=== PATIENT | male | born 1995 | race Hispanic/Latino ===

== ENCOUNTER 2017-10-06 07:07 | Emergency (ER) | payer MEDICAID, OTHER ==
[2017-10-06 07:34] VITALS: BP 131/79; PULSE 69; RESP 14; TEMP 99.3; O2SAT 100
--- NOTE | 2017-10-06 07:41 | C.PDOC ---
History Of Present Illness 22 y/o M c no PMHx p/w sore throat x 2 days. Patient reports subjective fever, worse when swallowing, painful to talk. Denies drooling, dyspnea, or cough. States girlfriend had sore throat a week ago and is taking antibiotics. Time Seen by Provider: 10/06/17 07:26 Chief Complaint (Nursing): ENT Problem Past Medical History Vital Signs: Last Vital Signs Temp 99.3 F 10/06/17 07:31 Pulse 69 10/06/17 07:31 Resp 14 10/06/17 07:31 BP 131/79 10/06/17 07:31 Pulse Ox 100 10/06/17 07:31 Family History: States: Unknown Family Hx - Social History Hx Tobacco Use: No Hx Alcohol Use: No Hx Substance Use: No - Immunization History Hx Influenza Vaccination: No Hx Pneumococcal Vaccination: No Review Of Systems Except As Marked, All Systems Reviewed And Found Negative. Respiratory: Negative for: Shortness of Breath Gastrointestinal: Negative for: Vomiting Physical Exam - Physical Exam Additional Physical Exam Comments: Gen: NAD Head: NC/AT Eyes: PERRL ENT: Erythema and exudates. Uvula midline. Neck: Tender lymphadenopathy CV: Regular rate Lungs: CTA b/l Abd: Soft Skin: No rash Extremities: No edema Neuro: Alert, no focal deficit ED Course And Treatment O2 Sat by Pulse Oximetry: 100 Medical Decision Making Medical Decision Making: Treated with Toradol and amoxicillin. Discharged home, f/u clinic, return to ED for worsening pain, drooling, swelling, or any other problem. Disposition - Disposition Referrals: [facility] [Outside] Disposition: HOME/ ROUTINE Disposition Time: 07:41 Condition: STABLE Prescriptions: Amoxicillin 875 mg PO BID #19 tablet Instructions: Strep Throat (DC) Forms: [facility] (Burmese), Work Excuse - Clinical Impression Clinical Impression: Tonsillitis
== END 2017-10-06 08:00 | disposition home or self-care (01) ==
LOC: C.ER 07:07
DX: J03.90 Acute tonsillitis, unspecified (principal)
CPT/HCPCS: 96372; 99283; J1885